=== PATIENT | male | born 1980 | race Caucasian/White ===

== ENCOUNTER 2021-06-29 02:27 | Emergency (ER) | payer BC ==
[2021-06-29 02:45] VITALS: BP 110/73; PULSE 72; TEMP 98.1; BMI 33.1
[2021-06-29] MEDS ORDERED: CEPHALEXIN MONOHYDRATE 500 MG CAPSULE (UD) PO ONE (04:35)
[2021-06-29] MEDS ORDERED: CEPHALEXIN MONOHYDRATE 500 MG CAPSULE (UD) ONE (04:38)
== END 2021-06-29 04:46 | disposition home or self-care (01) ==
LOC: FER 02:27
DX: R55 Syncope and collapse (principal); S02.2XXB Fracture of nasal bones, initial encounter for open fracture; W01.198A Fall on same level from slipping, tripping and stumbling with subsequent striking against other object, initial encounter
CPT/HCPCS: 70450-TC; 70486-TC; 99284-25